=== PATIENT | female | born 1940 | race Caucasian/White ===

== ENCOUNTER 2016-12-13 09:33 | Emergency (ER) | payer MEDICARE, OTHER ==
[~2016-12-13] VITALS: Ht 147.3 cm; Wt 48.0 kg
[2016-12-13] MEDS ORDERED: HYDR-3342 PO (10:14)
[2016-12-13] MEDS ORDERED: AMLO10TA2 PO (10:14)
[2016-12-13] MEDS ORDERED: CALC500T PO (10:14)
[2016-12-13 10:36] LABS: HEMATOCRIT 33.4 % (34.6-47.8); HEMOGLOBIN 10.9 g/dL (11.7-16.4)
[2016-12-13] MEDS ORDERED: DIPHENHYDRAMINE 25 MG CAPSULE ONE (10:37)
[2016-12-13 10:49] LABS: BLOOD UREA NITROGEN 108 mg/dL (7-18)
[2016-12-13] MEDS ORDERED: DIPHENHYDRAMINE 25 MG CAPSULE PO ONE (11:00)
[2016-12-13 12:25] VITALS: BP 166/74
== END 2016-12-13 12:30 | disposition home or self-care (01) ==
LOC: ED 11:00
DX: T78.40XA Allergy, unspecified, initial encounter (principal); X58.XXXA Exposure to other specified factors, initial encounter; R21 Rash and other nonspecific skin eruption; I12.9 Hypertensive chronic kidney disease with stage 1 through stage 4 chronic kidney disease, or unspecified chronic kidney disease; N18.9 Chronic kidney disease, unspecified; Z88.8 Allergy status to other drugs, medicaments and biological substances; E83.51 Hypocalcemia; M79.661 Pain in right lower leg
CPT/HCPCS: 36415; 80048; 82040; 82330; 85025; 93005; 93971; 99285; Q0163